=== PATIENT | male | born 1985 | race Caucasian/White ===

== ENCOUNTER 2017-09-30 05:15 | Emergency (ER) | payer BC ==
[~2017-09-30] VITALS: Ht 177.8 cm; Wt 84.1 kg
[2017-09-30] MEDS ORDERED: NAPROSYN500 MG PO (09:28)
[2017-09-30] MEDS ORDERED: LIDODERM 5% P1 PATCH TD (09:28)
== END 2017-09-30 09:39 | disposition home or self-care (01) ==
LOC: EME 05:15
DX: S96.911A Strain of unspecified muscle and tendon at ankle and foot level, right foot, initial encounter (principal); B35.3 Tinea pedis; X58.XXXA Exposure to other specified factors, initial encounter; G40.909 Epilepsy, unspecified, not intractable, without status epilepticus; F17.200 Nicotine dependence, unspecified, uncomplicated
CPT/HCPCS: 73630; 99281; 99284